=== PATIENT | female | born 1980 | race African-American/Black ===

== ENCOUNTER 2021-04-09 13:08 | Emergency (ER) | payer OTHER ==
[~2021-04-09] VITALS: Ht 165.1 cm; Wt 89.0 kg
[~2021-04-09 13:08] MED LIST: PRENATAL VITAMINS
[2021-04-09 13:25] VITALS: BP 104/58
== END 2021-04-09 18:01 | disposition left against medical advice (07) ==
LOC: ER 14:05
DX: R06.02 Shortness of breath (principal); Z53.21 Procedure and treatment not carried out due to patient leaving prior to being seen by health care provider